=== PATIENT | male | born 1990 | race Caucasian/White ===

== ENCOUNTER → 2023-05-06 13:57 | Outpatient (REF) | payer MEDICARE, SELFPAY | LOC: RAD 13:57 | PROVIDERS: ATTENDING PHYSICIAN Internal Medicine Critical Care Medicine; FAMILY PHYSICIAN Family Medicine | DX: R05.3 Chronic cough (principal) | CPT/HCPCS: 71046 ==

== ENCOUNTER → 2023-05-27 22:00 | Outpatient (REF) | payer MEDICARE, SELFPAY | LOC: DHSLP 22:00 | PROVIDERS: ATTENDING PHYSICIAN Internal Medicine Critical Care Medicine; FAMILY PHYSICIAN Family Medicine | DX: G47.33 Obstructive sleep apnea (adult) (pediatric) (principal); G47.31 Primary central sleep apnea | CPT/HCPCS: 95800 ==

== ENCOUNTER 2023-06-05 15:26 | Emergency (ER) | payer MEDICARE, SELFPAY ==
[2023-06-05 15:31] VITALS: BP 160/106; BMI 30.1
[2023-06-05 16:01] LABS: % Basophils 0.8 % (0-2); % Immature Granulocytes 0.5 % (0-0.5); % Lymphocytes 34.6 % (20.5-51.1); % Monocytes 7.2 % (1.7-9.3); % Neutrophils 53.9 % (42.2-75.2); Absolute Basophils 0.1 10^3/uL (0-0.2); Absolute Eosinophils 0.3 10^3/uL (0-0.7); Absolute Lymphocytes 2.9 10^3/uL (1.2-3.4); Absolute Monocytes 0.6 10^3/uL (0.1-0.6); Absolute Neutrophils 4.5 10^3/uL (1.4-6.5); Hematocrit 46.2 % (39.0-52.0); Hemoglobin 15.9 g/dL (13.0-18.0); Mean Corp Hgb Conc. 34.4 g/dL (33.0-37.0); Mean Corpuscular Hgb 28.5 pg (27.0-31.0); Mean Corpuscular Volume 82.9 fL (80.0-94.0); Mean Platelet Volume 9.4 fL (7.4-10.4); Nucleated Red Blood Cells % 0 % (-); Platelet Count 365 10^3/uL (130-400); Red Blood Cell Count 5.57 10^6/uL (4.70-6.10); Red Cell Dist. Width 12.5 % (11.5-14.5); White Blood Cell Count 8.3 10^3/uL (4.8-10.8)
[2023-06-05 16:17] LABS: ALT (SGPT) 34 U/L (0-50); AST (SGOT) 25 U/L (17-59); Albumin 5.1 g/dl (3.5-5.0); Alkaline Phosphatase 111 U/L (38-126); Blood Urea Nitrogen 13 mg/dl (9-20); Calcium 9.5 mg/dl (8.4-10.2); Carbon Dioxide 23 mmol/L (22-30); Chloride 101 mmol/L (98-107); Estimated Creatinine Clearance > 125 ml/min; Glucose 89 mg/dl (70-99); Potassium 3.7 mmol/L (3.5-5.1); Sodium 136 mmol/L (135-145); Total Bilirubin 0.6 mg/dl (0.2-1.3); Total Protein 8.2 g/dl (6.3-8.2); eGFR > 60.00
[2023-06-05 16:24] LABS: Troponin I < 0.012 ng/ml
--- NOTE | 2023-06-05 17:48 | ED.GENMED ---
History of Present Illness
General
Chief Complaint: Chest Pain
Source: patient
Exam Limitations: none
Time Seen by Provider: 06/05/23 17:47
Nursing documentation reviewed up to this point in time: agreed with
Travel History
Have you had any contact with someone who has COVID-19?: No
Do you have any symptoms of coronavirus? Fever > 100 degrees, chills, cough, shortness of breath, sore throat, loss of taste or smell, muscle aches, or headache?: No
History of Present Illness
History of Present Illness:
32-year-old male presents emergency room complaining of left side shoulder pain and chest pain since 3 PM. He states it hurts when he takes a deep breath. Yesterday he inhaled fumes from metal cleaner accidentally after use it in his bathroom.
Past History
Past History
ED Past Medical History: Asthma, HTN, Psychiatric and Other
ED Past Surgical History: None and Tonsilectomy
Social History
Tobacco: Non-smoker
Alcohol: Occasional
Drug: None
Personal: Single
Living: with family
Family History
Family History: Other (MS, hyperthyroid)
Review of Systems
Review of Systems
Allergies reviewed?: Yes
All Other Systems: Not applicable
Constitutional: Reports no symptoms
EENT: Reports no symptoms
Respiratory: Reports no symptoms
Cardiac: Reports chest pain
ABD/GI: Reports no symptoms
: Reports no symptoms
Musculoskeletal: Reports no symptoms
Skin: Reports no symptoms
Neurological: Reports no symptoms
Endocrine: Reports no symptoms
Hematologic/Lymphatic: Reports no symptoms
Psychiatric: Reports no symptoms
Phy Exam
Physical Exam
Physical Exam:
Physical Exam
General: no apparent distress, not acutely ill
Neck: supple. no meningeal signs. normal posterior pharynx
Heart: s1/s2 regular rate and rhythm, no murmur. equal radial
pulses.
HEENT: Pupils equal round reactive to light, EOMI
Lungs: no acute respiratory distress. clear bilaterally, chest wall tender to palpation, reproducing symptoms
Abdomen: normal bowel sounds. not tender. no CVAT
Neuro: alert and oriented. no focal neurological deficits cranial nerves II through XII intact
Skin: no rash
Psychiatric: well kept. interactive and cooperative
Extremities: no edema. no calf tenderness. negative homans. good distal pulses
Scores
Heart Score for Chest Pain Patients
STEMI patient?: Not applicable
Course
Orders/Labs/Results
Orders:
Orders
06/05/23 15:31
Electrocardiogram (*1) Urgent
Reason for Study: Chest Pain
EKG- Treatment ONCE
06/05/23 15:46
Complete Blood Count/With Diff Urgent
Comprehensive Metabolic Panel Urgent
Troponin I Urgent
06/05/23 18:08
CR Chest - 2 Views Urgent
Comment:
Reason For Exam: short of breath, chest pain
06/05/23 18:16
D-Dimer Urgent
Troponin I Urgent
Abnormal Lab Results
06/05/23
15:46
Albumin 5.1 H g/dl
(3.5-5.0)
06/05/23 15:46
06/05/23 15:46
Vital Signs
Initial and Last Documented VS:
Initial Vital Signs
Temp Pulse Resp BP Pulse Ox
98.3 F 102 20 160/106 100
06/05/23 15:31 06/05/23 15:31 06/05/23 15:31 06/05/23 15:31 06/05/23 15:31
Last Documented Vital Signs
Temp Pulse Resp BP Pulse Ox
98.3 F 98 18 180/88 98
06/05/23 15:31 06/05/23 19:12 06/05/23 19:12 06/05/23 19:12 06/05/23 19:12
MDM/Problems Addressed
Differential Diagnosis Includes:
ACS, PE, chest wall pain
MDM/Problems Addressed:
32-year-old male with chest pain, more likely chest wall pain. Doubt ACS or PE. Negative D-dimer and negative troponins. Normal EKG. Stable for discharge.
Chronic conditions affecting care: Asthma and Psychiatric illness (Anxiety)
Acute Exacerbation and/or Progression of Chronic Illness: Asthma and Psychiatric illness (Anxiety)
*Radiology
Radiology exam reviewed: preliminary read by ED provider (Chest x-ray no acute findings)
*Pulse Oximetry
Patient hypoxic: no
*EKG
Interpreted by ED Provider?: Yes
EKG Intrepretation Date: 06/05/23
EKG Intrepretation Time: 15:38
Interpretation: normal
Comparison EKG: no changes
Heart Rate: 100
Rate: normal
Rhythm: sinus
[place]: normal axis
Interval: normal interval
QRS Pattern: normal QRS
Ischemia: no ischemia
*[employer] Interpretation
Rate: normal
Interpretation: normal
Heart Rate: 99
Rhythm: sinus
*Critical Care Note
Total Time (30-74mins, 75-104mins- exclusive of procedures): Not Applicable
Data Reviewed
Further Testing Considered But Not Given:
CT chest considered, but not indicated
Patient Management
Social determinants of health affecting care: Living situation and Strong social support
Escalation/DeEscalation of care consider admission/obs:
Admit not indicated
ED Attending Note
-
Portions of this chart may have been created with voice recognition software.� Occasional wrong word or��sound alike� substitutions may have occurred due to the inherent limitations of voice recognition software.
Discharge Plan
Departure
Patient Disposition: Home (Routine Discharge)
Date of Disposition: 06/05/23
Time of Disposition: 19:05
Patient with high blood pressure during this ER visit?: Yes
Condition: Good
Discharge Problem:
Chest pain, non-cardiac
Instructions: Chest Pain That Is Not Caused by the Heart (DC), BLOOD PRESSURE
Prescriptions:
No Action
bupropion HCl 300 MG tablet extended release 24 hr
400 mg PO DAILY
lisdexamfetamine [Vyvanse] 70 MG capsule
70 mg PO DAILY
albuterol sulfate 1 PUFF HFA aerosol inhaler
2 puff inhalation R Q4HPRN PRN (Reason: shortness of breath, wheezing) Qty: 1 0RF
beclomethasone dipropionate [Qvar] 8.7 GM aerosol
1 puff IH BID Qty: 1 0RF
lorazepam 0.5 MG tablet
1 mg PO Q4HPRN PRN (Reason: anxiety)
lamotrigine [Lamictal] 150 MG tablet
500 mg PO Daily
ziprasidone HCl [Geodon] 20 MG capsule
100 mg PO Daily
sertraline 50 MG tablet
75 mg PO NOW
Referrals:
Obinna Chanel, DO [Family Provider] - Call in 1-3 days for appt
Interventions
Interventions:
*Risk Screen - Suicide Last Done: 06/05/23 15:31
*Neglect/Abuse Screening Last Done: 06/05/23 15:31
ED- Fall Risk Assessment Last Done: 06/05/23 17:20
*ED COVID-19 Vaccine History Last Done: 06/05/23 15:31
*Nursing Disposition Last Done: 06/05/23 19:12
ED- Cardiac Assessment Last Done: 06/05/23 17:20
Discharge Date and Time
Discharge Date/Time: 06/05/23 19:13
[2023-06-05 18:37] LABS: D-Dimer < 0.27 ug/mlFEU (0.00-0.50)
[2023-06-05 18:45] LABS: Troponin I < 0.012 ng/ml
[2023-06-05 19:12] VITALS: BP 180/88
== END 2023-06-05 19:13 | disposition home or self-care (01) ==
LOC: EMR 15:26
PROVIDERS: EMERGENCY PHYSICIAN Emergency Medicine; FAMILY PHYSICIAN Family Medicine
DX: R07.89 Other chest pain (principal); I10 Essential (primary) hypertension
CPT/HCPCS: 99285; 71046; 80053; 84484; 85025; 85379; 93005

== ENCOUNTER → 2023-07-16 | Outpatient (REF) | payer MEDICARE, SELFPAY | LOC: DHSLP | PROVIDERS: ATTENDING PHYSICIAN Internal Medicine Critical Care Medicine; FAMILY PHYSICIAN Family Medicine | DX: G47.33 Obstructive sleep apnea (adult) (pediatric) (principal) | CPT/HCPCS: 95811 ==